=== PATIENT | female | born 1945 | race Caucasian/White ===

== ENCOUNTER → 2023-07-10 09:42 | Outpatient (REF) | payer OTHER, SELFPAY | LOC: RCS 09:42 | PROVIDERS: ATTENDING PHYSICIAN Student in an Organized Health Care Education/Training Program | DX: R00.2 Palpitations (principal); R06.09 Other forms of dyspnea | CPT/HCPCS: 93017 ==

== ENCOUNTER 2024-02-03 09:46 | Emergency (ER) | payer OTHER, SELFPAY ==
[2024-02-03 09:54] VITALS: BP 148/65
--- NOTE | 2024-02-03 10:44 | ED.GENMED ---
History of Present Illness
General
Chief Complaint: Rabies
Source: patient
Exam Limitations: none
Time Seen by Provider: 02/03/24 10:43
Nursing documentation reviewed up to this point in time: agreed with
History of Present Illness
History of Present Illness:
Patient is a 78-year-old female who presents to the ER complaining of a raccoon bite. Patient was trying to shea a raccoon out of her grill and got bit in her right index finger. She is right-hand dominant. She reports she did squeeze the area
the area did bleed and she washed it with soap and water.
She denies any other injuries.
Review of Systems
Review of Systems
Allergies reviewed?: Yes
All Other Systems: ROS reviewed and negative except as documented in HPI and ROS
Constitutional: Reports no symptoms
Musculoskeletal: Reports other (racoon bite to right index finger )
Skin: Reports no symptoms
Psychiatric: Reports no symptoms
Phy Exam
General Physical Exam
General Presentation: no apparent distress
General age: appears stated age
General Skin: warm and dry
General Habitus: normal
General Mental: alert
General Hydration: appears well hydrated
Neurological Exam
Neurological Exam: alert and oriented x3
Musculoskeletal Exam
Musculoskeletal Exam: other (right ue with strong pulses + small abrasion /bite to volar aspect of middle phalanx of right index finger no erythema non tender able to flex/extend finger no swelling )
Course
Orders/Labs/Results
Orders:
Orders
02/03/24 10:51
Tetanus/Diphth/Acelpertussis [Adacel] 0.5 ml IM .ONCE ONE
02/03/24 10:58
Rabies Vaccine (Pcec)/Pf [Rabavert Rabies Vacc W-Diluent] 2.5 unit IM .ONCE ONE
02/03/24 11:02
Rabies Immune Globulin/Pf [HyperRAB] 980 unit IM NOW STA
Vital Signs
Initial and Last Documented VS:
Initial Vital Signs
Temp Pulse Resp BP Pulse Ox
97.8 F 58 18 148/65 100
02/03/24 09:54 02/03/24 09:54 02/03/24 09:54 02/03/24 09:54 02/03/24 09:54
Last Documented Vital Signs
Temp Pulse Resp BP Pulse Ox
97.8 F 58 18 148/65 100
02/03/24 09:54 02/03/24 09:54 02/03/24 09:54 02/03/24 09:54 02/03/24 09:54
MDM/Problems Addressed
Differential Diagnosis Includes:
not limited to: animal bite
MDM/Problems Addressed:
78 yr. 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 Patient very small abrasion and bite radha to the area she cleaned it copiously prior to arrival. Patient is in need of tetanus. Patient was given rabies immunoglobulin along with
rabies vaccine and tetanus. She however wants to hold off on antibiotics. I did review with patient bite wound risk and importance of prompt antibiotic any evidence of infection and she is to return if any worsening of symptoms.
Discussed close outpatient follow-up with PCP for wound check and patient educated on following up for next rabies vaccines on day 3 7 and 14
*Critical Care Note
Total Time (30-74mins, 75-104mins- exclusive of procedures): Not Applicable
ED Attending Note
-
Portions of this chart may have been created with voice recognition software.� Occasional wrong word or��sound alike� substitutions may have occurred due to the inherent limitations of voice recognition software.
Discharge Plan
Departure
Patient Disposition: Home (Routine Discharge)
Date of Disposition: 02/03/24
Time of Disposition: 11:08
Patient with high blood pressure during this ER visit?: Yes
Condition: Fair
Covid-19: Not Applicable
Discharge Problem:
Animal bite
Instructions: Animal Bites (DC), BLOOD PRESSURE
Prescriptions:
New
amoxicillin-pot clavulanate 875-125 mg tablet
1 tab PO BID Qty: 14 0RF
Stand Alone Forms: Rabies Vaccine Post Exp Dosing
Activity Restrictions/Additional Instructions:
As discussed you were given rabies immunoglobulin as well as vaccine and tetanus today here in the ER. A prescription was given to you for rabies vaccine for next 3 doses. Bring prescription with you to the infusion center. You may go to infusion
center for all of your next rabies vaccines.
Wash area with soap and water twice a day allowed to drain. You were also given a prescription for antibiotics to start if any evidence of infection, redness pain drainage red streaking fever chills return if any worsening of symptoms. It is
recommended that you follow-up with family doctor the next of days for wound check.
Interventions
Interventions:
*Risk Screen - Suicide Last Done: 02/03/24 11:34
*General Assessment Last Done: 02/03/24 11:34
*Neglect/Abuse Screening Last Done: 02/03/24 11:34
ED- Fall Risk Assessment Last Done: 02/03/24 11:34
*ED COVID-19 Vaccine History Last Done: 02/03/24 11:34
*Nursing Disposition Last Done: 02/03/24 11:34
Discharge Date and Time
Discharge Date/Time: 02/03/24 11:35
Print Language: BURUN[place]
[2024-02-03] MEDS: RABAVERT RABIES VACC W-DILUENT 2.5 UNIT IM (11:07)
[2024-02-03] MEDS: ADACEL 0.5 ML IM (11:08)
[2024-02-03] MEDS: HyperRAB 980 UNIT IM (11:23)
== END 2024-02-03 11:35 | disposition home or self-care (01) ==
LOC: EMR 09:46
PROVIDERS: EMERGENCY PHYSICIAN Student in an Organized Health Care Education/Training Program; FAMILY PHYSICIAN Student in an Organized Health Care Education/Training Program
DX: S60.410A Abrasion of right index finger, initial encounter (principal); W55.51XA Bitten by raccoon, initial encounter; Z20.3 Contact with and (suspected) exposure to rabies; Z23 Encounter for immunization; Z29.14 Encounter for prophylactic rabies immune globulin
CPT/HCPCS: 99282; 90471; 90472; 96372; 90375; 90675; 90715

== ENCOUNTER 2024-02-17 14:18 | Outpatient (RCR) | payer OTHER, SELFPAY ==
[2024-02-06 14:45] VITALS: BP 143/55
[2024-02-06] MEDS: RABAVERT RABIES VACC W-DILUENT 2.5 UNIT IM (14:59)
[2024-02-10 14:53] VITALS: BP 139/76
[2024-02-10] MEDS: RABAVERT RABIES VACC W-DILUENT 2.5 UNIT IM (14:58)
[2024-02-17 14:30] VITALS: BP 114/71
[2024-02-17] MEDS: RABAVERT RABIES VACC W-DILUENT 2.5 UNIT IM (14:36)
== END 2024-02-18 08:55 | disposition home or self-care (01) ==
LOC: OID 14:18
PROVIDERS: ATTENDING PHYSICIAN Nurse Practitioner; FAMILY PHYSICIAN Student in an Organized Health Care Education/Training Program
DX: Z20.3 Contact with and (suspected) exposure to rabies (principal); Z23 Encounter for immunization
CPT/HCPCS: 90471; 90675

== ENCOUNTER → 2024-05-21 12:23 | Outpatient (REF) | payer OTHER, SELFPAY | LOC: WDC 12:23 | PROVIDERS: ATTENDING PHYSICIAN Obstetrics & Gynecology; FAMILY PHYSICIAN Student in an Organized Health Care Education/Training Program | DX: Z12.31 Encounter for screening mammogram for malignant neoplasm of breast (principal) | CPT/HCPCS: 77063; 77067 ==